=== PATIENT | female | born 1950 | race Caucasian/White ===

== ENCOUNTER → 2017-02-13 | Outpatient (CLI) | payer BC | LOC: LAB 14:19 | DX: R30.0 Dysuria (principal) ==

== ENCOUNTER 2017-07-21 08:00 | Outpatient (RCR) | payer BC | END 2017-07-21 08:30 | disposition home or self-care (01) | LOC: PT 08:00 | DX: M25.512 Pain in left shoulder (principal) ==

== ENCOUNTER → 2018-01-05 | Outpatient (CLI) | payer MEDICARE, OTHER ==
[2018-01-05 10:05] LABS: EOS # 0.1 (0.04-0.40); EOS % 1.4 % (1.0-5.0); HEMATOCRIT 41.4 % (37.0-47.0); HEMOGLOBIN 14.4 g/dL (12.5-16.0); LYMPH# 2.1 (1.50-4.00); MEAN CELL VOLUME 86 fl (78-100); MEAN CORPUSCULAR HEMOGLOBIN 30 pg (27-31); MEAN CORPUSCULAR HGB CONC 35 g/dL (33-37); MEAN PLATELET VOLUME 8.4 fl (7.4-10.4); MONO # 0.4 (0.20-0.80); NEU # 4.7 (1.40-6.50); PLATELET COUNT 265 K/mm3 (130-400); RED BLOOD COUNT 4.79 M/mm3 (4.10-5.30); RED CELL DISTRIBUTION WIDTH 14.3 % (11.5-14.5); WHITE BLOOD COUNT 7.4 K/mm3 (4.8-10.8)
[2018-01-05 10:33] LABS: ALBUMIN 4.2 g/dL (3.5-5.0); BUN/CREATININE RATIO 14.2 (6.0-26.0); CALCIUM 9.1 mg/dL (8.4-10.2); POTASSIUM 4.4 mmol/L (3.6-5.0); TOTAL BILIRUBIN 0.4 mg/dL (0.2-1.3); TOTAL PROTEIN 7.3 g/dL (6.3-8.2)
[2018-01-05 23:31] LABS: ERYTHROCYTE SEDIMENTATION RATE 5 mm/hr (0-30)
== END ==
LOC: LAB 09:39
PROVIDERS: Internal Medicine
DX: Z12.11 Encounter for screening for malignant neoplasm of colon (principal); G62.89 Other specified polyneuropathies; E78.5 Hyperlipidemia, unspecified; M85.80 Other specified disorders of bone density and structure, unspecified site; E74.39 Other disorders of intestinal carbohydrate absorption

== ENCOUNTER → 2018-01-26 | Outpatient (CLI) | payer MEDICARE, OTHER | LOC: RAD 13:36 → MAMMO 13:45 | DX: Z13.820 Encounter for screening for osteoporosis (principal); M85.80 Other specified disorders of bone density and structure, unspecified site ==

== ENCOUNTER → 2019-01-17 | Outpatient (CLI) | payer MEDICARE, OTHER ==
[2019-01-17 10:32] LABS: EOS # 0.1 (0.04-0.40); HEMATOCRIT 42.5 % (37.0-47.0); HEMOGLOBIN 14.4 g/dL (12.5-16.0); LYMPH# 2.2 (1.50-4.00); MEAN CELL VOLUME 84 fl (78-100); MEAN CORPUSCULAR HEMOGLOBIN 28 pg (27-31); MEAN CORPUSCULAR HGB CONC 34 g/dL (33-37); MEAN PLATELET VOLUME 8.7 fl (7.4-10.4); MONO # 0.4 (0.20-0.80); NEU # 4.2 (1.40-6.50); PLATELET COUNT 301 K/mm3 (130-400); RED BLOOD COUNT 5.09 M/mm3 (4.10-5.30); RED CELL DISTRIBUTION WIDTH 13.8 % (11.5-14.5); WHITE BLOOD COUNT 6.9 K/mm3 (4.8-10.8)
[2019-01-17 10:46] LABS: ALBUMIN 3.9 g/dL (3.4-4.8); POTASSIUM 3.6 mmol/L (3.5-5.1)
[2019-01-17 10:47] LABS: CALCIUM 9.2 mg/dL (8.3-10.5)
[2019-01-17 10:48] LABS: TOTAL PROTEIN 6.9 g/dL (6.2-8.1)
[2019-01-17 10:50] LABS: TOTAL BILIRUBIN 0.3 mg/dL (0.2-1.2)
[2019-01-17 11:45] LABS: ERYTHROCYTE SEDIMENTATION RATE 9 mm/hr (0-30)
[2019-01-18 01:32] LABS: ANA SCREEN with REFLEX Negative (Negative)
== END ==
LOC: LAB 10:14
PROVIDERS: Internal Medicine
DX: Z12.11 Encounter for screening for malignant neoplasm of colon (principal); E78.89 Other lipoprotein metabolism disorders; I47.1 Supraventricular tachycardia; M85.80 Other specified disorders of bone density and structure, unspecified site; G62.9 Polyneuropathy, unspecified; R73.02 Impaired glucose tolerance (oral)

== ENCOUNTER → 2019-05-23 | Outpatient (CLI) | payer MEDICARE, OTHER ==
[2019-01-30 22:06] VITALS: BP 155/90
[~2019-05-23] MED LIST: AMBIEN10 MG PO; KLONOPIN 1MG1 MG PO; OTEZLA30 MG PO; SOMA350 M1 PO; ULTRAM50 M1 PO
== END ==
LOC: MAMMO 09:50
DX: Z12.31 Encounter for screening mammogram for malignant neoplasm of breast (principal)

== ENCOUNTER → 2019-09-27 | Outpatient (CLI) | payer MEDICARE, OTHER ==
[2019-01-30 22:06] VITALS: BP 155/90
== END ==
LOC: RAD 10:59
DX: M25.561 Pain in right knee (principal)

== ENCOUNTER → 2019-12-05 | Outpatient (CLI) | payer MEDICARE, OTHER ==
[2019-01-30 22:06] VITALS: BP 155/90
[2019-12-05 08:48] LABS: EOS # 0.2 (0.04-0.40); EOS % 2.1 % (1.0-5.0); HEMATOCRIT 43.4 % (37.0-47.0); LYMPH# 2.6 (1.50-4.00); MEAN CELL VOLUME 83 fl (78-100); MEAN CORPUSCULAR HEMOGLOBIN 29 pg (27-31); MEAN CORPUSCULAR HGB CONC 35 g/dL (33-37); MEAN PLATELET VOLUME 8.7 fl (7.4-10.4); MONO # 0.6 (0.20-0.80); NEU # 5.3 (1.40-6.50); PLATELET COUNT 304 K/mm3 (130-400); RED BLOOD COUNT 5.26 M/mm3 (4.10-5.30); RED CELL DISTRIBUTION WIDTH 13.7 % (11.5-14.5); WHITE BLOOD COUNT 8.7 K/mm3 (4.8-10.8)
[2019-12-05 08:58] LABS: ALBUMIN 4.4 g/dL (3.4-4.8); POTASSIUM 3.9 mmol/L (3.5-5.1)
[2019-12-05 08:59] LABS: CALCIUM 9.3 mg/dL (8.3-10.5)
[2019-12-05 09:01] LABS: TOTAL PROTEIN 7.1 g/dL (6.2-8.1)
[2019-12-05 09:02] LABS: TOTAL BILIRUBIN 0.4 mg/dL (0.2-1.2)
[2019-12-05 10:05] LABS: ERYTHROCYTE SEDIMENTATION RATE 5 mm/hr (0-30)
== END ==
LOC: LAB 08:33
PROVIDERS: Internal Medicine
DX: Z00.00 Encounter for general adult medical examination without abnormal findings (principal); Z12.11 Encounter for screening for malignant neoplasm of colon; M85.80 Other specified disorders of bone density and structure, unspecified site; G62.89 Other specified polyneuropathies; E88.81 Metabolic syndrome and other insulin resistance; E78.89 Other lipoprotein metabolism disorders; R53.83 Other fatigue

== ENCOUNTER → 2019-12-16 | Outpatient (CLI) | payer MEDICARE, OTHER ==
[2019-01-30 22:06] VITALS: BP 155/90
== END ==
LOC: LAB 14:37
DX: Z12.11 Encounter for screening for malignant neoplasm of colon (principal); I47.1 Supraventricular tachycardia; G62.89 Other specified polyneuropathies; M85.80 Other specified disorders of bone density and structure, unspecified site; R73.02 Impaired glucose tolerance (oral)

== ENCOUNTER → 2020-01-30 | Outpatient (CLI) | payer MEDICARE, OTHER ==
[2019-01-30 22:06] VITALS: BP 155/90
[2020-01-30 12:51] LABS: EOS # 0.2 (0.04-0.40); HEMATOCRIT 41.6 % (37.0-47.0); HEMOGLOBIN 14.1 g/dL (12.5-16.0); LYMPH# 2.3 (1.50-4.00); MEAN CELL VOLUME 86 fl (78-100); MEAN CORPUSCULAR HEMOGLOBIN 29 pg (27-31); MEAN CORPUSCULAR HGB CONC 34 g/dL (33-37); MEAN PLATELET VOLUME 8.5 fl (7.4-10.4); MONO # 0.6 (0.20-0.80); PLATELET COUNT 327 K/mm3 (130-400); RED BLOOD COUNT 4.85 M/mm3 (4.10-5.30); RED CELL DISTRIBUTION WIDTH 15.4 % (11.5-14.5); WHITE BLOOD COUNT 8.1 K/mm3 (4.8-10.8)
[2020-01-30 13:04] LABS: ALBUMIN 4.2 g/dL (3.4-4.8)
[2020-01-30 13:05] LABS: POTASSIUM 3.8 mmol/L (3.5-5.1)
[2020-01-30 13:06] LABS: CALCIUM 8.7 mg/dL (8.3-10.5)
[2020-01-30 13:07] LABS: TOTAL PROTEIN 7.2 g/dL (6.2-8.1)
[2020-01-30 13:09] LABS: TOTAL BILIRUBIN 0.3 mg/dL (0.2-1.2)
== END ==
LOC: LAB 12:43
PROVIDERS: Physician Assistant
DX: Z51.81 Encounter for therapeutic drug level monitoring (principal); Z79.899 Other long term (current) drug therapy

== ENCOUNTER → 2020-02-15 | Outpatient (CLI) | payer MEDICARE, OTHER ==
[2019-01-30 22:06] VITALS: BP 155/90
== END ==
LOC: MAMMO 01-17 11:30
DX: Z13.820 Encounter for screening for osteoporosis (principal); M81.0 Age-related osteoporosis without current pathological fracture; M85.80 Other specified disorders of bone density and structure, unspecified site; I49.3 Ventricular premature depolarization

== ENCOUNTER → 2020-04-25 | Outpatient (CLI) | payer MEDICARE, OTHER ==
[2019-01-30 22:06] VITALS: BP 155/90
[2020-04-25 12:14] LABS: CLUE CELLS NOT OBSERVED (Not Observd)
== END ==
LOC: LAB 12:03
PROVIDERS: Nurse Practitioner
DX: N76.0 Acute vaginitis (principal); M54.9 Dorsalgia, unspecified; R35.0 Frequency of micturition
CPT/HCPCS: Q0111

== ENCOUNTER → 2021-01-28 | Outpatient (CLI) | payer MEDICARE, OTHER ==
[2021-01-28 09:43] LABS: BASO # 0.03 (0.02-0.10); EOS # 0.17 (0.04-0.40); EOS % 2.4 % (1.0-5.0); HEMATOCRIT 40.2 % (37.0-47.0); HEMOGLOBIN 13.9 g/dL (12.5-16.0); MEAN CELL VOLUME 87 fl (78-100); MEAN CORPUSCULAR HEMOGLOBIN 30 pg (27-31); MEAN CORPUSCULAR HGB CONC 35 g/dL (33-37); MEAN PLATELET VOLUME 8.9 fl (7.4-10.4); MONO # 0.37 (0.20-0.80); NEU # 4.19 (1.40-6.50); PLATELET COUNT 237 K/mm3 (130-400); RED BLOOD COUNT 4.63 M/mm3 (4.10-5.30); RED CELL DISTRIBUTION WIDTH 13.3 % (11.5-14.5)
[2021-01-28 09:59] LABS: ALBUMIN 3.8 g/dL (3.4-4.8); POTASSIUM 3.8 mmol/L (3.5-5.1)
[2021-01-28 10:00] LABS: CALCIUM 8.5 mg/dL (8.3-10.5)
[2021-01-28 10:01] LABS: TOTAL PROTEIN 6.4 g/dL (6.2-8.1)
[2021-01-28 10:03] LABS: TOTAL BILIRUBIN 0.4 mg/dL (0.2-1.2)
== END ==
LOC: LAB 09:26
PROVIDERS: Internal Medicine
DX: I47.1 Supraventricular tachycardia (principal); E78.2 Mixed hyperlipidemia; K90.9 Intestinal malabsorption, unspecified; R73.03 Prediabetes

== ENCOUNTER → 2021-03-29 | Outpatient (CLI) | payer MEDICARE, OTHER ==
[2021-03-29 14:14] LABS: CLUE CELLS PRESENT (Not Observd)
== END ==
LOC: LAB 14:03
PROVIDERS: Nurse Practitioner
DX: N89.8 Other specified noninflammatory disorders of vagina (principal)
CPT/HCPCS: Q0111

== ENCOUNTER → 2021-05-22 | Outpatient (CLI) | payer MEDICARE, OTHER ==
[2021-05-23 13:29] LABS: AFFIRM VAGINITIS PANEL RESULTS AMS
== END ==
LOC: LAB 10:23
PROVIDERS: Physician Assistant
DX: N89.8 Other specified noninflammatory disorders of vagina (principal)

== ENCOUNTER → 2021-07-26 | Outpatient (CLI) | payer MEDICARE, OTHER ==
[2021-07-26 14:58] LABS: BASO # 0.03 K/mm3 (0.02-0.10); EOS # 0.18 K/mm3 (0.04-0.40); HEMATOCRIT 40.4 % (37.0-47.0); HEMOGLOBIN 13.8 g/dL (12.5-16.0); LYMPH# 3.15 K/mm3 (1.50-4.00); MEAN CELL VOLUME 89 fl (78-100); MEAN CORPUSCULAR HEMOGLOBIN 30 pg (27-31); MEAN CORPUSCULAR HGB CONC 34 g/dL (33-37); MEAN PLATELET VOLUME 9.1 fl (7.4-10.4); MONO # 0.33 K/mm3 (0.20-0.80); NEU # 5.45 K/mm3 (1.40-6.50); PLATELET COUNT 253 K/mm3 (130-400); RED BLOOD COUNT 4.55 M/mm3 (4.10-5.30); RED CELL DISTRIBUTION WIDTH 13.5 % (11.5-14.5); WHITE BLOOD COUNT 9.2 K/mm3 (4.8-10.8)
[2021-07-26 15:07] LABS: ALBUMIN 4.2 g/dL (3.4-4.8); POTASSIUM 3.6 mmol/L (3.5-5.1)
[2021-07-26 15:08] LABS: CALCIUM 9.1 mg/dL (8.3-10.5)
[2021-07-26 15:10] LABS: TOTAL PROTEIN 6.8 g/dL (6.2-8.1)
[2021-07-26 15:11] LABS: TOTAL BILIRUBIN 0.4 mg/dL (0.2-1.2)
== END ==
LOC: LAB 14:27
PROVIDERS: Physician Assistant
DX: Z79.899 Other long term (current) drug therapy (principal)

== ENCOUNTER → 2021-08-28 | Outpatient (CLI) | payer MEDICARE, OTHER ==
[2021-08-28 12:16] LABS: BASO # 0.03 K/mm3 (0.02-0.10); EOS # 0.08 K/mm3 (0.04-0.40); EOS % 1.1 % (1.0-5.0); HEMATOCRIT 40.1 % (37.0-47.0); HEMOGLOBIN 13.7 g/dL (12.5-16.0); LYMPH# 1.65 K/mm3 (1.50-4.00); MEAN CELL VOLUME 87 fl (78-100); MEAN CORPUSCULAR HEMOGLOBIN 30 pg (27-31); MEAN CORPUSCULAR HGB CONC 34 g/dL (33-37); MEAN PLATELET VOLUME 8.8 fl (7.4-10.4); MONO # 0.28 K/mm3 (0.20-0.80); NEU # 5.08 K/mm3 (1.40-6.50); PLATELET COUNT 264 K/mm3 (130-400); RED BLOOD COUNT 4.62 M/mm3 (4.10-5.30); RED CELL DISTRIBUTION WIDTH 13.4 % (11.5-14.5); WHITE BLOOD COUNT 7.1 K/mm3 (4.8-10.8)
[2021-08-28 12:21] LABS: ALBUMIN 4.1 g/dL (3.4-4.8)
[2021-08-28 12:22] LABS: POTASSIUM 3.9 mmol/L (3.5-5.1)
[2021-08-28 12:23] LABS: CALCIUM 9.4 mg/dL (8.3-10.5)
[2021-08-28 12:24] LABS: TOTAL PROTEIN 6.6 g/dL (6.2-8.1)
[2021-08-28 12:26] LABS: TOTAL BILIRUBIN 0.5 mg/dL (0.2-1.2)
[2021-08-30 10:30] LABS: HEPATITIS B CORE AB TOTAL NEG; HEPATITIS B SURFACE ANTIGEN NEG; TB MITOGEN-NIL 0.0479; TB TB1-NIL 0.0456; TB TB2-NIL >10.0
== END ==
LOC: LAB 11:19
PROVIDERS: Physician Assistant
DX: Z79.899 Other long term (current) drug therapy (principal)

== ENCOUNTER → 2021-09-12 | Outpatient (CLI) | payer MEDICARE, OTHER | LOC: RAD 12:20 | DX: Z11.1 Encounter for screening for respiratory tuberculosis (principal) ==

== ENCOUNTER → 2021-10-17 | Outpatient (CLI) | payer MEDICARE, OTHER ==
[2021-10-17 11:37] LABS: ALBUMIN 3.9 g/dL (3.4-4.8); POTASSIUM 3.7 mmol/L (3.5-5.1)
[2021-10-17 11:38] LABS: CALCIUM 8.6 mg/dL (8.3-10.5)
[2021-10-17 11:39] LABS: TOTAL PROTEIN 6.8 g/dL (6.2-8.1)
[2021-10-17 11:41] LABS: TOTAL BILIRUBIN 1.1 mg/dL (0.2-1.2)
[2021-10-17 12:16] LABS: BASO # 0.03 K/mm3 (0.02-0.10); EOS # 0.25 K/mm3 (0.04-0.40); EOS % 3.2 % (1.0-5.0); HEMATOCRIT 41.4 % (37.0-47.0); HEMOGLOBIN 14.3 g/dL (12.5-16.0); LYMPH# 2.92 K/mm3 (1.50-4.00); MEAN CELL VOLUME 86 fl (78-100); MEAN CORPUSCULAR HEMOGLOBIN 30 pg (27-31); MEAN CORPUSCULAR HGB CONC 35 g/dL (33-37); MEAN PLATELET VOLUME 9.2 fl (7.4-10.4); MONO # 0.61 K/mm3 (0.20-0.80); PLATELET COUNT 219 K/mm3 (130-400); RED BLOOD COUNT 4.82 M/mm3 (4.10-5.30); RED CELL DISTRIBUTION WIDTH 13.5 % (11.5-14.5); WHITE BLOOD COUNT 7.9 K/mm3 (4.8-10.8)
== END ==
LOC: LAB 11:16
PROVIDERS: Internal Medicine
DX: Z22.7 Latent tuberculosis (principal)

== ENCOUNTER → 2022-01-09 | Outpatient (CLI) | payer MEDICARE, OTHER ==
[2022-01-09 15:13] LABS: CLUE CELLS OBSERVED (Not Observd)
== END ==
LOC: LAB 14:32
PROVIDERS: Nurse Practitioner
DX: R30.9 Painful micturition, unspecified (principal); N89.8 Other specified noninflammatory disorders of vagina
CPT/HCPCS: Q0111

== ENCOUNTER → 2022-01-31 | Outpatient (CLI) | payer MEDICARE, OTHER ==
[2022-01-31 09:33] LABS: BASO # 0.03 K/mm3 (0.02-0.10); EOS # 0.23 K/mm3 (0.04-0.40); EOS % 3.5 % (1.0-5.0); HEMATOCRIT 42.7 % (37.0-47.0); HEMOGLOBIN 14.6 g/dL (12.5-16.0); MEAN CELL VOLUME 84 fl (78-100); MEAN CORPUSCULAR HEMOGLOBIN 29 pg (27-31); MEAN CORPUSCULAR HGB CONC 34 g/dL (33-37); MONO # 0.36 K/mm3 (0.20-0.80); NEU # 4.15 K/mm3 (1.40-6.50); PLATELET COUNT 248 K/mm3 (130-400); RED BLOOD COUNT 5.09 M/mm3 (4.10-5.30); RED CELL DISTRIBUTION WIDTH 13.3 % (11.5-14.5); WHITE BLOOD COUNT 6.6 K/mm3 (4.8-10.8)
[2022-01-31 10:22] LABS: ALBUMIN 4.1 g/dL (3.4-4.8); POTASSIUM 4.2 mmol/L (3.5-5.1)
[2022-01-31 10:24] LABS: CALCIUM 9.1 mg/dL (8.3-10.5)
[2022-01-31 10:25] LABS: TOTAL PROTEIN 6.7 g/dL (6.2-8.1)
[2022-01-31 10:27] LABS: TOTAL BILIRUBIN 0.5 mg/dL (0.2-1.2)
[2022-01-31 10:32] LABS: MAGNESIUM 2.05 mg/dL (1.60-2.60)
[2022-01-31 11:49] LABS: ERYTHROCYTE SEDIMENTATION RATE 3 mm/hr (0-30)
[2022-01-31 12:07] LABS: URINE APPEARANCE HAZY; URINE BILIRUBIN NEGATIVE (NEGATIVE); URINE BLOOD NEGATIVE (NEGATIVE); URINE COLOR YELLOW; URINE GLUCOSE NEGATIVE (NEGATIVE); URINE KETONE NEGATIVE (NEGATIVE); URINE LEUKOCYTE ESTERASE 1+ (NEGATIVE); URINE NITRATE NEGATIVE (NEGATIVE); URINE PROTEIN(semi-quant) TRACE (NEGATIVE); URINE UROBILINOGEN NORMAL (NORMAL); URINE WBC 16-30 /hpf (0-3)
== END ==
LOC: LAB 08:53
PROVIDERS: Internal Medicine
DX: Z12.11 Encounter for screening for malignant neoplasm of colon (principal); I47.1 Supraventricular tachycardia; K90.9 Intestinal malabsorption, unspecified; K90.0 Celiac disease; Z22.7 Latent tuberculosis; R35.0 Frequency of micturition

== ENCOUNTER → 2022-02-17 | Outpatient (CLI) | payer MEDICARE, OTHER | LOC: MAMMO 12:53 → RAD 12:53 → MAMMO 13:00 | DX: M85.89 Other specified disorders of bone density and structure, multiple sites (principal) ==

== ENCOUNTER → 2022-03-10 | Outpatient (CLI) | payer MEDICARE, OTHER ==
[2022-03-10 12:16] LABS: BASO # 0.02 K/mm3 (0.02-0.10); EOS % 1.3 % (1.0-5.0); HEMATOCRIT 41.5 % (37.0-47.0); HEMOGLOBIN 13.9 g/dL (12.5-16.0); LYMPH# 1.94 K/mm3 (1.50-4.00); MEAN CELL VOLUME 87 fl (78-100); MEAN CORPUSCULAR HEMOGLOBIN 29 pg (27-31); MEAN CORPUSCULAR HGB CONC 34 g/dL (33-37); MEAN PLATELET VOLUME 8.6 fl (7.4-10.4); MONO # 0.41 K/mm3 (0.20-0.80); NEU # 5.39 K/mm3 (1.40-6.50); PLATELET COUNT 233 K/mm3 (130-400); RED BLOOD COUNT 4.76 M/mm3 (4.10-5.30); RED CELL DISTRIBUTION WIDTH 13.4 % (11.5-14.5); WHITE BLOOD COUNT 7.9 K/mm3 (4.8-10.8)
[2022-03-10 12:28] LABS: POTASSIUM 4.1 mmol/L (3.5-5.1)
[2022-03-10 12:29] LABS: CALCIUM 8.9 mg/dL (8.3-10.5)
[2022-03-10 12:31] LABS: TOTAL PROTEIN 6.4 g/dL (6.2-8.1)
[2022-03-10 12:32] LABS: TOTAL BILIRUBIN 0.4 mg/dL (0.2-1.2)
[2022-03-10 12:46] LABS: URINE APPEARANCE HAZY; URINE BILIRUBIN NEGATIVE (NEGATIVE); URINE BLOOD 2+ (NEGATIVE); URINE COLOR YELLOW; URINE GLUCOSE NEGATIVE (NEGATIVE); URINE KETONE NEGATIVE (NEGATIVE); URINE LEUKOCYTE ESTERASE TRACE (NEGATIVE); URINE NITRATE NEGATIVE (NEGATIVE); URINE PROTEIN(semi-quant) NEGATIVE (NEGATIVE); URINE UROBILINOGEN NORMAL (NORMAL); URINE WBC 16-30 /hpf (0-3)
[2022-03-10 13:26] LABS: ERYTHROCYTE SEDIMENTATION RATE 22 mm/hr (0-30)
== END ==
LOC: LAB 11:59
PROVIDERS: Nurse Practitioner Family
DX: R10.32 Left lower quadrant pain (principal)

== ENCOUNTER → 2022-05-16 | Outpatient (CLI) | payer MEDICARE, OTHER | LOC: LAB 11:25 | DX: R35.0 Frequency of micturition (principal) ==

== ENCOUNTER → 2022-06-10 | Outpatient (CLI) | payer MEDICARE, OTHER ==
[2022-06-10 15:46] LABS: CLUE CELLS PRESENT (Not Observd)
== END ==
LOC: LAB 15:26
PROVIDERS: Nurse Practitioner Family
DX: N89.8 Other specified noninflammatory disorders of vagina (principal); R35.0 Frequency of micturition
CPT/HCPCS: Q0111

== ENCOUNTER → 2022-08-11 | Outpatient (CLI) | payer MEDICARE, OTHER ==
[2022-08-11 12:14] LABS: BASO # 0.02 K/mm3 (0.02-0.10); EOS # 0.08 K/mm3 (0.04-0.40); HEMATOCRIT 43.5 % (37.0-47.0); HEMOGLOBIN 14.8 g/dL (12.5-16.0); MEAN CELL VOLUME 88 fl (78-100); MEAN CORPUSCULAR HEMOGLOBIN 30 pg (27-31); MEAN CORPUSCULAR HGB CONC 34 g/dL (33-37); MONO # 0.36 K/mm3 (0.20-0.80); NEU # 5.64 K/mm3 (1.40-6.50); PLATELET COUNT 243 K/mm3 (130-400); RED BLOOD COUNT 4.96 M/mm3 (4.10-5.30); RED CELL DISTRIBUTION WIDTH 13.3 % (11.5-14.5); WHITE BLOOD COUNT 7.9 K/mm3 (4.8-10.8)
[2022-08-11 12:27] LABS: ALBUMIN 4.2 g/dL (3.4-4.8); POTASSIUM 4.5 mmol/L (3.5-5.1)
[2022-08-11 12:29] LABS: CALCIUM 9.2 mg/dL (8.3-10.5)
[2022-08-11 12:30] LABS: TOTAL PROTEIN 6.8 g/dL (6.2-8.1)
[2022-08-11 12:32] LABS: TOTAL BILIRUBIN 0.4 mg/dL (0.2-1.2)
== END ==
LOC: LAB 11:53
PROVIDERS: Nurse Practitioner
DX: M54.50 Low back pain, unspecified (principal); R10.30 Lower abdominal pain, unspecified

== ENCOUNTER → 2024-02-29 | Outpatient (CLI) | payer MEDICARE, OTHER ==
[~2024-02-29] MED LIST changes: +AMOXICILLIN AND1 TA2 PO; +OFLOXACIN 5 ML5 M1 OT
== END ==
LOC: LAB 14:45
DX: Z12.11 Encounter for screening for malignant neoplasm of colon (principal); K90.9 Intestinal malabsorption, unspecified; F32.A Depression, unspecified; R32 Unspecified urinary incontinence; E78.2 Mixed hyperlipidemia

== ENCOUNTER → 2024-06-27 | Outpatient (CLI) | payer MEDICARE | LOC: MAMMO 14:12 | DX: Z12.31 Encounter for screening mammogram for malignant neoplasm of breast (principal); M85.80 Other specified disorders of bone density and structure, unspecified site ==

== ENCOUNTER → 2024-06-30 | Outpatient (CLI) | payer MEDICARE | LOC: RAD 08:59 | DX: M25.561 Pain in right knee (principal) ==